=== PATIENT | male | born 1975 | race Caucasian/White ===

== ENCOUNTER 2020-10-20 18:43 | Emergency (ER) | payer OTHER, MEDICAID, SELFPAY ==
[2020-10-20 18:57] VITALS: BP 162/73; PULSE 82; RESP 22; TEMP 36.9; O2SAT 98; BMI 24.3
--- NOTE | 2020-10-20 19:15 | PC.NURSE ---
Pt arrives by [employer]. On stretcher, in cuffs with feet also tied, lying on stomach. Pt reports some discomfort in left wrist, swelling present. RR reg. MD removes taser barbs x 2 from right side/ribs. Pt position changed from on stomach to back with feet and right hand secured. Pt is calm, apologizes [employer] and states I'm not going to try anything. Left wrist swollen/red. Xray ordered, ice pack applied. Abrasions to bilateral shoulders and sides of face/forehead. [employer] remains present in ED.
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
[2020-10-20 20:10] VITALS: BP 154/90; PULSE 85; RESP 18; O2SAT 100
== END 2020-10-20 20:25 | disposition home or self-care (01) ==
PROVIDERS: Emergency Provider Emergency Medicine
DX: S60.212A Contusion of left wrist, initial encounter (principal); S00.81XA Abrasion of other part of head, initial encounter; Z00.8 Encounter for other general examination
CPT/HCPCS: 73110; 99283

== ENCOUNTER → 2020-12-29 14:05 | Outpatient (CLI) | payer OTHER, MEDICAID, SELFPAY ==
--- NOTE | 2020-12-29 14:09 | DI.RAD.S_ITS ---
PROCEDURE: XR KNEE LT 3V INDICATIONS: Left patella deformity TECHNIQUE: 3 views of the knee were acquired. COMPARISON: None. FINDINGS: Bones: No fractures or dislocations. No suspicious bony lesions. Tricompartmental periarticular osteophyte formation. Soft tissues: No joint effusion. No suspicious soft tissue calcifications. Prepatellar soft tissue swelling. IMPRESSION: Prepatellar soft tissue swelling and mild early knee joint degeneration. Dictated by: Maxi Menard [facility] Interpreted: Kana Brice MD on 12/29/2020 at 14:44 Transcribed by: NGHIA on 12/29/2020 at 14:44 Approved by: Kana Brice M.D. on 12/29/2020 at 15:37
--- NOTE | 2020-12-29 14:09 | DI.RAD.S_ITS ---
PROCEDURE: XR WRIST RT MIN 3V INDICATIONS: radial right wrist mass TECHNIQUE: 4 views of the wrist were acquired. COMPARISON: [facility], CR, XR WRIST LT MIN 3V, 10/20/2020, 19:21. FINDINGS: Bones: No fractures or dislocations. No suspicious bony lesions. Scaphoid view: Intact scaphoid. Soft tissues: No suspicious soft tissue calcifications. Mild soft tissue swelling adjacent to the radial styloid process. IMPRESSION: Mild soft tissue swelling adjacent to the radial styloid process. Dictated by: Maxi Menard [facility] Interpreted: Kana Brice MD on 12/29/2020 at 14:40 Transcribed by: NGHIA on 12/29/2020 at 14:43 Approved by: Kana Brice M.D. on 12/29/2020 at 15:37
== END ==
PROVIDERS: PCP Student in an Organized Health Care Education/Training Program; Referring Provider Student in an Organized Health Care Education/Training Program; Visit Provider Student in an Organized Health Care Education/Training Program
DX: R22.31 Localized swelling, mass and lump, right upper limb (principal); M17.12 Unilateral primary osteoarthritis, left knee; M25.569 Pain in unspecified knee; M79.89 Other specified soft tissue disorders
CPT/HCPCS: 73110; 73562

== ENCOUNTER 2021-01-29 10:33 | Day surgery (SDC) | payer OTHER, MEDICAID, SELFPAY ==
[2021-01-26 11:53] VITALS: BMI 24.3
[2021-01-29] VITALS (9 sets, daily range): BP systolic 120–142; BP diastolic 77–94; PULSE 56–64; RESP 10–20; TEMP 36.2–37.2; O2SAT 94–100; BMI 24.3
[2021-01-29 11:08] LABS: COVID19 -Nasal RAPID Negative (Negative)
[2021-01-29] MEDS: LACTATED RINGERS 1,000 ML 42 ML IV ×2 (11:46→13:18)
--- NOTE | 2021-01-29 12:12 | SUR.OPER ---
Supine on padded OR bed, head on pillow, arms secured on padded arm boards at <90 degrees abduction, legs uncrossed, safety belt at thigh, tape over blanket over lower legs.
--- NOTE | 2021-01-29 12:44 | PM.PREOP ---
Pre-operative Note COVID-19 COVID-19 status: Negative Result date/Date tested (Pos, Neg/Pending): 01/28/21 Interval Note History & Physical reviewed/Exam performed by Physician: Yes Changes to H&P: No
[2021-01-29] MEDS: CEFAZOLIN 1 GM VIAL 2 GM IV (13:05)
[2021-01-29] MEDS: BUPIVACAINE 0.25% (PF) VIAL 30 ML INJ (13:06)
--- NOTE | 2021-01-29 13:40 | PM.OP.1 ---
Operative Date/Time/Diagnoses Date of procedure: 01/29/21 Pre-op diagnosis: Incarcerated umbilical hernia Post-op diagnosis: same (Containing fat) Procedure & Clinicians Procedure: Suture repair of hernia Same procedure as scheduled: Yes Indications: Symptomatic incarcerated umbilical hernia Surgeon: Dyllan Wagner Click Yes if Unassisted: Yes Anesthesia Type: General Operative Notes Findings: Very small defect. Closed with a single suture. Closure Type: primary Specimen(s): none sent Prosthetic devices, grafts, tissues, transplants, or devices: None Estimated Blood Loss (mL): 3 Blood products transfused: none Procedure in detail: The patient was placed supine on the operating room table and underwent general LMA anesthesia. They were prepped and draped in the usual fashion. A curvilinear incision was made above the umbilicus and carried down to the level of the fascia. The fascia overlying was cleared of tissue. The opening was approximately 0.5 cm. The fat protruding from it could not be reduced and therefore I had excised it. The fascial closure was accomplished with an interrupted asouyg-al-mcdxu 0 Tycron sutures. The umbilicus was tacked down to the fascia with a 3-0 Vicryl. The subcu was closed with interrupted 3 0 Vicryl and the skin was closed with interrupted 4 0 Vicryl subcuticular stitch and Steri-Strips. Dressing was applied and the patient was awakened and taken to the recovery area in good condition. The patient appeared to tolerate the procedure well. Complications: none Post-operative Condition: stable Disposition: PACU
[2021-01-29] MEDS: fentaNYL 100 MCG/2 ML INJ IV ×2 (13:46→13:56)
[2021-01-29] MEDS: ONDANSETRON 4 MG/2 ML INJ IV (13:47)
[2021-01-29] MEDS: OXYCODONE/ACETAMINOPHEN 5/325 TABLET 1 TAB PO (14:00)
--- NOTE | 2021-01-29 14:02 | SUR.PHASEI ---
assusmed care from Dasia Benjamin RN. Patient awake, oriented, resp unlabored, denies nausea, states that pain level hasn't changed. See MAR for medications. Fluids and pudding given prior to PO rx
== END 2021-01-29 15:00 | disposition home or self-care (01) ==
PROVIDERS: PCP Student in an Organized Health Care Education/Training Program; Referring Provider Specialist; Visit Provider Specialist
PROC: (CPT 49587; principal; 2021-01-29 12:15)
DX: K42.0 Umbilical hernia with obstruction, without gangrene (principal); Z20.822 Contact with and (suspected) exposure to COVID-19
CPT/HCPCS: 49587; 87635; J0690; J1100; J2405; J2704; J3010